=== PATIENT | female | born 1965 | race Caucasian/White ===

== ENCOUNTER 2018-10-18 12:05 | Emergency (ER) | payer BC ==
[2018-10-18] MEDS: Sodium Chloride 0.9% 1,000 ML IV ONE (12:35)
[2018-10-18] MEDS: Sodium Chloride 0.9% 10 ML Syringe FLUSH PRN (12:35)
[2018-10-18] MEDS: Ondansetron 4 MG/2 ML SDV IVPUSH ONE ×2 (12:38→13:36)
[2018-10-18] MEDS: methylPREDNISolone Sodium Succinate 125 MG/2 ML SDV IVPUSH ONE (12:40)
--- NOTE | 2018-10-18 12:56 | EDM.PDOC ---
ED HPI GENERAL MEDICAL PROBLEM - General Chief Complaint: General Stated Complaint: ER VISIT Time Seen by Provider: 10/18/18 12:06 Source of Information: Reports: Patient, Family, RN, RN Notes Reviewed History Limitations: Reports: No Limitations - History of Present Illness INITIAL COMMENTS - FREE TEXT/NARRATIVE: Patient presents the emergency room at [facility] for evaluation of severe dizziness. The patient states that her symptoms started around noon last Friday. The patient states she has a long-standing history of vertigo and dizziness. She states that she normally just waits it out at home and it resolves on its own, however this episode has been persistent despite home treatment. The patient has never had any formal workup for her dizziness. She has never had an Raffaele maneuver or a Pedro-Hallpike maneuver. The patient states she feels very nauseated. She has not vomited. The patient does not have any eye or ear symptoms. The patient denies any headaches. No visual field disturbances. Otherwise no other concerns. Onset Date: 10/16/18 - Related Data Allergies Allergy/AdvReac Type Severity Reaction Status Date / Time codeine Allergy Nausea Verified 10/18/18 12:12 hydrocodone Allergy Nausea Verified 10/18/18 12:12 Sulfa (Sulfonamide Allergy Hives Verified 10/18/18 12:12 Antibiotics) Home Meds: Home Meds Cholecalciferol (Vitamin D3) [D-2000] 2,000 unit PO DAILY 12/31/13 [History] Estrogen,Con/M-Progest Acet [Prempro 0.625-2.5 mg Tablet] 1 each PO DAILY [History] FLUoxetine [PROzac] 20 mg PO DAILY 12/31/13 [History] Loratadine/Pseudoephedrine [Claritin-D 24 Hour Tablet] 1 each PO DAILY 12/31/13 [History] Multivitamin [Multi Vitamin Daily] 1 each PO DAILY 12/31/13 [History] Naproxen Sodium [Aleve] 220 mg PO BID PRN 12/31/13 [History] atorvaSTATin Calcium [Atorvastatin Calcium] 10 mg PO DAILY 10/18/18 [History] Past Medical History Cardiovascular History: Reports: High Cholesterol Psychiatric History: Reports: Depression Social & Family History - Tobacco Use Smoking Status *Q: Unknown Ever Smoked ED ROS GENERAL - Review of Systems Review Of Systems: See Below Constitutional: Denies: Fever, Chills HEENT: Reports: Vertigo. Denies: Ear Discharge, Ear Pain, Vision Change Respiratory: Denies: Shortness of Breath, Cough Cardiovascular: Denies: Chest Pain, Palpitations GI/Abdominal: Reports: Nausea. Denies: Abdominal Pain, Vomiting Skin: Reports: No Symptoms Neurological: Reports: Dizziness. Denies: Headache ED EXAM, GENERAL - Physical Exam Exam: See Below Exam Limited By: No Limitations General Appearance: Alert, No Apparent Distress Eye Exam: Bilateral Eye: EOMI, Normal Inspection, PERRL Ears: Normal External Exam, Normal Canal, Normal TMs Ear Exam: Bilateral Ear: TM normal Head: Atraumatic, Normocephalic Neck: Supple Respiratory/Chest: No Respiratory Distress, Lungs Clear, Normal Breath Sounds Cardiovascular: Normal Peripheral Pulses, Regular Rate, Rhythm Peripheral Pulses: 2+: Radial (L), Radial (R) GI/Abdominal: Normal Bowel Sounds, Soft, Non-Tender Neurological: Alert, Oriented Skin Exam: Warm, Dry, Intact, Normal Color Course - Vital Signs Last Recorded V/S: Last Vital Signs Temp 36.4 C 10/18/18 12:05 Pulse 73 10/18/18 12:05 Resp 16 10/18/18 12:05 BP 137/72 10/18/18 12:05 Pulse Ox 100 10/18/18 12:05 - Orders/Labs/Meds Orders: Active Orders 24 hr Category Date Time Status Consult to Physical Therapy [PT Evaluation and Cons 10/18/18 13:10 Active Treatment] [CONS] Routine Sodium Chloride 0.9% [Saline Flush] Med 10/18/18 12:20 Active 10 ml FLUSH ASDIRECTED PRN Peripheral IV Insertion Adult [OM.PC] Routine Oth 10/18/18 12:20 Ordered Medication Orders Sodium Chloride (Saline Flush) 10 ml FLUSH ASDIRECTED PRN PRN Reason: Keep Vein Open Last Admin: 10/18/18 12:35 Dose: 10 ml Meds: Medications Generic Name Dose Route Start Last Admin Trade Name Freq PRN Reason Stop Dose Admin Sodium Chloride 10 ml 10/18/18 12:20 10/18/18 12:35 Saline Flush FLUSH 10 ml ASDIRECTED PRN Administration Keep Vein Open Discontinued Medications Generic Name Dose Route Start Last Admin Trade Name Freq PRN Reason Stop Dose Admin Sodium Chloride 1,000 mls @ 999 mls/hr 10/18/18 12:20 10/18/18 12:35 Normal Saline IV 10/18/18 13:20 999 mls/hr ONETIME ONE Administration Lorazepam 2 mg 10/18/18 13:22 Ativan IVPUSH 10/18/18 13:23 ONETIME ONE Lorazepam 1 packet 10/18/18 13:22 Take Home: Lorazepam 0.5 Mg, 2 Tab Pack PO 10/18/18 13:23 ONETIME ONE Methylprednisolone Sodium Succinate 125 mg 10/18/18 12:25 10/18/18 12:40 Solu-Medrol IVPUSH 10/18/18 12:26 125 mg ONETIME ONE Administration Ondansetron HCl 4 mg 10/18/18 12:21 10/18/18 12:38 Zofran IVPUSH 10/18/18 12:22 4 mg ONETIME ONE Administration Ondansetron HCl 4 mg 10/18/18 13:22 Zofran IVPUSH 10/18/18 13:23 ONETIME ONE Departure - Departure Time of Disposition: 13:24 Disposition: Home, Self-Care 01 Condition: Good Clinical Impression: Vertigo, Dizziness - Discharge Information *PRESCRIPTION DRUG MONITORING PROGRAM REVIEWED*: Not Applicable *COPY OF PRESCRIPTION DRUG MONITORING REPORT IN PATIENT JOHN: Not Applicable Instructions: Benign Positional Vertigo Referrals: Patricia Wright DO [Physician] - Forms: ED Department Discharge Additional Instructions: 1. Stay well hydrated and rest 2. Will get you set up with our Physical Therapy department for tomorrow 3. Call us with any questions or concerns - Problem List Review Problem List Initiated/Reviewed/Updated: Yes - My Orders Last 24 Hours: My Active Orders 10/18/18 12:20 Sodium Chloride 0.9% [Saline Flush] 10 ml FLUSH ASDIRECTED PRN Peripheral IV Insertion Adult [OM.PC] Routine 10/18/18 13:10 Consult to Physical Therapy [PT Evaluation and Treatment] [CONS] Routine - Assessment/Plan Last 24 Hours: My Active Orders 10/18/18 12:20 Sodium Chloride 0.9% [Saline Flush] 10 ml FLUSH ASDIRECTED PRN Peripheral IV Insertion Adult [OM.PC] Routine 10/18/18 13:10 Consult to Physical Therapy [PT Evaluation and Treatment] [CONS] Routine Assessment:: Vertigo Dizziness Plan: Fluids and antiemetics given. This has helped some, but still feels dizzy when upright. Discharge instructions given for treatment of vertigo at home. Will send order and get patient set up with our PT department for vestibular rehab. Will give Lorazepam IV in ED and send medication home with patient. Return to ED at symptoms warrant.
[2018-10-18] MEDS: LORazepam 2 MG/ML SDV IVPUSH ONE (13:37)
[2018-10-18] MEDS: Take Home: LORazepam 0.5 MG Tab, 2 Tab Pack PO ONE (13:38)
== END 2018-10-18 13:47 | disposition home or self-care (01) ==
LOC: VM.ED 12:05
DX: R42 Dizziness and giddiness (principal); F32.9 Major depressive disorder, single episode, unspecified; E78.00 Pure hypercholesterolemia, unspecified; Z79.899 Other long term (current) drug therapy; Z88.2 Allergy status to sulfonamides; Z88.5 Allergy status to narcotic agent; Z88.6 Allergy status to analgesic agent
CPT/HCPCS: 96361; 96374; 96375; 96376; 99283; A9270; J2060; J2405; J2930; J7030